=== PATIENT | female | born 1985 | race Caucasian/White ===

== ENCOUNTER 2017-06-14 13:59 | Day surgery (SDC) | payer OTHER ==
[2017-06-14 15:07] LABS: ADD MAN DIFF? NO
[2017-06-14 15:11] LABS: WHITE BLOOD COUNT 9.4 10^3/ul (4.8-10.8)
[2017-06-14 15:11] LABS: BASOPHIL # 0.1 10^3/ul (0.0-0.1); BASOPHILS % 0.8 % (0.0-2.0); EOSINOPHILS # 0.2 10^3/ul (0.0-0.5); EOSINOPHILS % 1.7 % (0.0-7.0); HEMATOCRIT 38.1 % (37.0-47.0); HEMOGLOBIN 13.4 g/dl (12.0-16.0); LYMPHOCYTES # 3.2 10^3/ul (0.8-2.9); LYMPHOCYTES % 33.9 % (15.0-51.0); MEAN CORPUSCULAR HEMOGLOBIN 30.7 pg (29.0-33.0); MEAN CORPUSCULAR HGB CONC 35.2 g/dl (32.0-37.0); MEAN CORPUSCULAR VOLUME 87.4 fl (82.0-101.0); MEAN PLATELET VOLUME 9.6 fl (7.4-10.4); MONOCYTE # 0.6 10^3/ul (0.3-0.9); MONOCYTES % 6.4 % (0.0-11.0); NEUTROPHIL # 5.4 10^3/ul (1.6-7.5); PLATELET COUNT 272 10^3/UL (140-415); RED BLOOD COUNT 4.36 10^6/ul (4.20-5.40); RED CELL DISTRIBUTION WIDTH 12.5 % (11.5-14.5)
[2017-06-14] MEDS ORDERED: FENTAnyl 50 MCG/ML VIAL ×3 (15:16→16:04)
[2017-06-14] MEDS ORDERED: MIDAZOLAM 1 MG/ML 2 ML INJ (15:16)
[2017-06-14] MEDS ORDERED: CEFAZOLIN 1 GM INJ ×2 (15:39→16:23)
[2017-06-14] MEDS ORDERED: PROPOFOL 20 ML (16:23)
[2017-06-14] MEDS ORDERED: LIDOCAINE 100 MG SYRINGE (16:23)
[2017-06-14] MEDS ORDERED: ROCURONIUM 50 MG INJ (16:23)
[2017-06-14] MEDS ORDERED: SUCCINYLCHOLINE CHLORIDE 100 MG/5 ML SYG IV (16:23)
[2017-06-14] MEDS ORDERED: KETOROLAC 30 MG INJ (16:24)
[2017-06-14] MEDS ORDERED: SUGAMMADEX SODIUM 200 MG/2 ML VIAL IV (16:24)
[2017-06-14] MEDS ORDERED: ALBUTEROL 18 GM INHALER (16:52)
[2017-06-14] MEDS: ALBUTEROL HFA 8 GM INHALER INH (17:05)
== END 2017-06-14 17:45 | disposition home or self-care (01) ==
LOC: SDS 13:59
DX: Z30.2 Encounter for sterilization (principal); J45.909 Unspecified asthma, uncomplicated
CPT/HCPCS: 58565; 85025; 86850; 86900; 86901